=== PATIENT | male | born 1935 ===

== ENCOUNTER 2018-12-01 21:32 | Observation (INO) | payer MEDICARE ==
[2018-12-01 22:31] LABS: VENOUS BLOOD GAS PCO2 81 mmHg (40-60); VENOUS BLOOD GAS PO2 59 mm/Hg (30-55); VENOUS BLOOD PH 7.33 (7.32-7.43)
[2018-12-01 22:38] LABS: BASO % 1.1 % (0.0-2.0); EOS # 0.3 K/uL (0.0-0.7); EOS % 5.5 % (0.0-4.0); HEMOGLOBIN 14.8 g/dL (12.0-18.0); LYMPH % 22.8 % (20.0-40.0); MEAN CELL VOLUME 87.1 fl (80.0-94.0); MEAN CORPUSCULAR HEMOGLOBIN 27.1 pg (27.0-31.0); MEAN CORPUSCULAR HGB CONC 31.1 g/dL (33.0-37.0); MEAN PLATELET VOLUME 8.8 fl (7.2-11.7); MONO # 0.5 K/uL (0.0-0.8); MONO % 10.5 % (0.0-10.0); NEUT # 2.8 K/uL (1.8-7.0); NEUT % 60.1 % (50.0-75.0); NRBC % 0.1 % (0.0-0.0); RBC 5.44 Mil/uL (4.40-5.90); WHITE BLOOD COUNT 4.6 K/uL (4.8-10.8)
[2018-12-01 22:43] LABS: INR 1.1; PROTHROMBIN TIME 12.7 Seconds (9.8-13.1)
[2018-12-01 22:45] LABS: PARTIAL THROMBOPLASTIN TIME 36.3 Seconds (25.6-37.1)
--- NOTE | 2018-12-01 22:45 | ED PDOC ---
HPI: General Adult Time Seen by Provider: 12/01/18 21:59 Chief Complaint (Nursing): Abnormal Labs Chief Complaint (Provider): Abnormal Labs History Per: Patient History/Exam Limitations: no limitations Current Symptoms Are (Timing): Still Present Recently: Hospitalized Additional History Per: Detention Additional Complaint(s): 83 year old male with a history of HTN, DM, high cholesterol and renal failure presents to the ED due to elevated levels of potassium. Patient recently had a prolonged hospital stay due to renal insufficiency, hyperkalemia and urinary retention and is currently a [facility] resident while he rehabilitates. His potassium level was 6.6. Offers no serious complaints. He is just reporting feeling tired with some shortness of breath. Denies chest pain and focal weakness. PMD: Dr. Richardson custodial: Dr. Zuñiga Past Medical History Reviewed: Historical Data, Nursing Documentation, Vital Signs Vital Signs: Last Vital Signs Temp 98.3 F 12/01/18 21:37 Pulse 115 H 12/01/18 21:37 Resp 16 12/01/18 21:37 BP 158/102 H 12/01/18 21:37 Pulse Ox 96 12/01/18 21:37 - Medical History PMH: Diabetes, HTN, Hypercholesterolemia, End Stage Renal Disease - Family History Family History: States: Unknown Family Hx - Home Medications Home Medications: Ambulatory Orders Medication Instructions Recorded Acetaminophen [Tylenol 325mg tab] 2 tab PO Q4 PRN 12/02/18 Albuterol/Ipratropium [Duoneb 3 3 ml IH Q6 PRN 12/02/18 mg/0.5 mg (3 ml) UD] Arformoterol [Brovana] 15 mcg IH BID 12/02/18 Aspirin [Adult Low Dose Aspirin EC] 1 tab PO DAILY 12/02/18 Atorvastatin Calcium 20 mg PO HS 12/02/18 Budesonide [Pulmicort] 2 ml INH BID 12/02/18 Famotidine [Pepcid] 1 tab PO HS 12/02/18 Fexofenadine HCl [Aller-Fex] 180 mg PO DAILY 12/02/18 Furosemide [Lasix] 20 mg PO DAILY 12/02/18 Insulin Lispro [Admelog] See Protocol SQ ACHS 12/02/18 Mag Hydrox/Aluminum Hyd/Simeth 30 ml PO DAILY PRN 12/02/18 [Mag-Al Plus Xs Suspension] Magnesium Hydroxide [Milk Of 30 ml PO DAILY PRN 12/02/18 Magnesia] Metoprolol Tartrate [Lopressor] 50 mg PO Q12 12/02/18 Tamsulosin [Flomax] 0.4 mg PO DAILY 12/02/18 traMADol [Ultram] 1 tab PO Q6 PRN 12/02/18 - Allergies Allergies/Adverse Reactions: Allergies Allergy/AdvReac Type Severity Reaction Status Date / Time No Known Allergies Allergy Verified 12/01/18 21:37 Review of Systems ROS Statement: Except As Marked, All Systems Reviewed And Found Negative Constitutional: Positive for: Weakness, Other Cardiovascular: Negative for: Chest Pain Respiratory: Positive for: Shortness of Breath Neurological: Negative for: Weakness Physical Exam - Reviewed Nursing Documentation Reviewed: Yes Vital Signs Reviewed: Yes - Physical Exam Appears: Positive for: Well, No Acute Distress Head Exam: Positive for: ATRAUMATIC Skin: Positive for: Normal Color, Warm, Dry. Negative for: Rash Eye Exam: Positive for: EOMI, Normal appearance, PERRL Neck: Positive for: Normal, Painless ROM Cardiovascular/Chest: Positive for: Regular Rate, Rhythm. Negative for: Murmur Respiratory: Positive for: Normal Breath Sounds (lung sounds clear to aus cultation). Negative for: Rales, Rhonchi, Wheezing Gastrointestinal/Abdominal: Positive for: Normal Exam, Soft. Negative for: Tenderness, Mass, Guarding, Rebound Back: Positive for: Normal Inspection. Negative for: Muscle Spasm Extremity: Positive for: Normal ROM (x 4). Negative for: Deformity Lymphatic: Negative for: Adenopathy Neurological/Psych: Positive for: Awake, Alert. Negative for: Motor/Sensory Deficits - Laboratory Results Result Diagrams: 12/02/18 06:30 12/02/18 06:30 Lab Results: pO2 59 mm/Hg (30-55) H 12/01/18 22:20 VBG pH 7.33 (7.32-7.43) 12/01/18 22:20 VBG pCO2 81 mmHg (40-60) H* 12/01/18 22:20 VBG HCO3 34.8 mmol/L 12/01/18 22:20 VBG Total CO2 45.2 mmol/L (22-28) H 12/01/18 22:20 VBG O2 Sat (Calc) 94.4 % (40-65) H 12/01/18 22:20 VBG Base Excess 13.0 mmol/L (0.0-2.0) H 12/01/18 22:20 VBG Potassium 4.6 mmol/L (3.6-5.2) 12/01/18 22:20 Sodium 137.0 mmol/L (132-148) 12/01/18 22:20 Chloride 98.0 mmol/L (98-107) 12/01/18 22:20 Glucose 135 mg/dL (75-110) H 12/01/18 22:20 Lactate 1.1 mmol/L (0.7-2.1) 12/01/18 22:20 FiO2 21.0 % 12/01/18 22:20 Crit Value Called To Sonia carty 12/01/18:20 Crit Value Called By 23 12/01/18:20 Crit Value Read Back Y 12/01/18 22:20 Blood Gas Notified Time 222712/01/18 22:20 - ECG O2 Sat by Pulse Oximetry: 96 (RA) Pulse Ox Interpretation: Normal Medical Decision Making Medical Decision Makin:00 Impression: hyperkalemia Initial Plan: --Blood type and screen --VBG --EKG --CMP --CBC --Troponin --Magnesium --Phosphate --PTT --PT --UA --Urine cx --CXR Labs do not demonstrate hyperkalemia. However demonstrates worsening renal function. WILMER Zuñiga. Pt to be hospitalized for further management. Scribe Attestation: Documented by Jewell Dai, acting as a scribe for Leandra Andersen MD. Provider Scribe Attestation: All medical record entries made by the Scribe were at my direction and personally dictated by me. I have reviewed the chart and agree that the record accurately reflects my personal performance of the history, physical exam, medic al decision making, and the department course for this patient. I have also personally directed, reviewed, and agree with the discharge instructions and disposition. Disposition - Clinical Impression Clinical Impression: Acute on chronic renal insufficiency - Disposition Disposition Time: 23:45 Condition: FAIR - Pt Status Changed To: Hospital Disposition Of: Observation - POA Present On Arrival: None
[2018-12-01 23:22] LABS: ALB/GLOB RATIO 0.9 (1.0-2.1); ALBUMIN 3.6 g/dL (3.5-5.0); ALT/SGPT 46 U/L (21-72); AST/SGOT 44 U/L (17-59); BLOOD UREA NITROGEN 32 mg/dl (9-20); CALCIUM 9.1 mg/dL (8.4-10.2); GFR NON-AFRICAN AMERICAN 36
[2018-12-02] MEDS ORDERED: Sodium Chloride 0.9% 1,000 ML IV STA (00:08)
[2018-12-02 04:20] LABS: URINE BILIRUBIN NEGATIVE (NEGATIVE); URINE BLOOD LARGE (NEGATIVE); URINE CLARITY CLOUDY (Clear); URINE COLOR AMBER (YELLOW); URINE GLUCOSE (UA) NEG (NEGATIVE); URINE HYALINE CAST 0-2 /hpf (0-2); URINE LEUKOCYTE ESTERASE SMALL Leu/uL (Negative); URINE PROTEIN 100 mg/dL (NEGATIVE)
[2018-12-02] MEDS ORDERED: Magnesium Hydroxide Susp 30 ml UD PO PRN (06:17)
[2018-12-02] MEDS ORDERED: Alum-Mag Hydrox-Simethicone Susp (30 mL) PO PRN (06:17)
[2018-12-02 06:50] LABS: HEMOGLOBIN 14.6 g/dL (12.0-18.0); MEAN CELL VOLUME 88.1 fl (80.0-94.0); MEAN CORPUSCULAR HEMOGLOBIN 27.1 pg (27.0-31.0); MEAN CORPUSCULAR HGB CONC 30.7 g/dL (33.0-37.0); RBC 5.4 Mil/uL (4.40-5.90); RED CELL DISTRIBUTION WIDTH 19.2 % (11.5-14.5); WHITE BLOOD COUNT 4.5 K/uL (4.8-10.8)
[2018-12-02 06:56] LABS: INR 1.1; PROTHROMBIN TIME 12.3 Seconds (9.8-13.1)
[2018-12-02 06:58] LABS: PARTIAL THROMBOPLASTIN TIME 37.6 Seconds (25.6-37.1)
[2018-12-02 07:00] LABS: ALBUMIN 3.6 g/dL (3.5-5.0)
[2018-12-02] MEDS: Budesonide 0.25 mg/2 ml Inhal Susp UD INH SCH ×2 (07:14→19:20)
[2018-12-02] MEDS: Albuterol-Ipratrop 3 mg / 0.5 (3 ml) UD IH PRN ×2 (07:14→19:15)
[2018-12-02] MEDS ORDERED: Insulin Lispro (humaLOG) 100 Units/ml Inj SC SCH (07:30)
[2018-12-02 08:22] VITALS: PULSE 85
[2018-12-02] MEDS: Insulin Lispro (humaLOG) 100 Units/ml Inj SC SCH ×3 (08:28→17:18)
[2018-12-02] MEDS ORDERED: Pneumococcal 23-Valent Vaccine IM ONE (09:00)
[2018-12-02] MEDS ORDERED: Patient's Own Med (Arformoterol [Brovana] 15 MCG) IH SCH (09:00)
[2018-12-02] MEDS ORDERED: BUDESONIDE INH SCH (09:00)
--- NOTE | 2018-12-02 09:02 | CARD ---
APPROVED REPORT Date of service: 12/01/2018 EKG Measurement Heart [id number] <Conclusion> Atrial fibrillation with rapid ventricular response Abnormal ECG
--- NOTE | 2018-12-02 10:45 | RAD ---
Date of service: 12/01/2018 HISTORY: Hyperkalemia COMPARISON: 08/10/2013 FINDINGS: LUNGS: No active pulmonary disease. PLEURA: No significant pleural effusion identified, no pneumothorax apparent. CARDIOVASCULAR: No atherosclerotic calcification present Cardiomegaly. No evidence of acute, significant cardiovascular disease. OSSEOUS STRUCTURES: No significant abnormalities. VISUALIZED UPPER ABDOMEN: Normal. OTHER FINDINGS: None. IMPRESSION: No active pulmonary disease. No significant interval change compared to the prior examination(s).
[2018-12-02 16:16] VITALS: BP 117/67; RESP 20; TEMP 97.8
--- NOTE | 2018-12-04 00:52 | CP.PCM.HP ---
History of Present Illness - History of Present Illness History of Present Illness: CC: Sent from [facility] for Electrolyte Abnormalities History of Present Illness: An 83 year old male with a history of Essential HTN, DM II, High Cholesterol and Renal Failure presents to the ED due to elevated levels of potassium. Patient recently had a prolonged hospital stay due to renal insufficiency, Hyperkalemia and urinary retention and is currently a snf resident at [facility]. His potassium level was 6.6. Offers no serious complaints. He is just reporting feeling tired with some shortness of breath. Denies chest pain and focal weakness. Present on Admission - Present on Admission Any Indicators Present on Admission: Yes Urinary Catheter: Yes Review of Systems - Review of Systems All systems: reviewed and no additional remarkable complaints except Review of Systems: as per HPI Past Patient History - Past Medical History & Family History Past Medical History?: Yes Past Family History: Reviewed and not pertinent - Past Social History Smoking Status: Never Smoked Alcohol: None Drugs: Denies - CARDIAC Hx Hypercholesterolemia: Yes Hx Hypertension: Yes - HEENT Hx Cataracts: Yes - RENAL Hx Renal Failure: Yes (ESRD) - ENDOCRINE/METABOLIC Hx Diabetes Mellitus Type 2: Yes - MUSCULOSKELETAL/RHEUMATOLOGICAL Hx Falls: No Hx Unsteady Gait: Yes - GENITOURINARY/GYNECOLOGICAL Hx Hematuria: Yes Hx Prostate Cancer: Yes Other/Comment: Watson catheter insertion and hematuria. bladder disorder - PSYCHIATRIC Hx Substance Use: No - SURGICAL HISTORY Hx Surgeries: Yes Hx Arthroscopy: Yes (left knee) Hx Cataract Extraction: Yes (b/l eyes) Hx Cholecystectomy: Yes Hx Coronary Stent: Yes - ANESTHESIA Hx Anesthesia: Yes Hx Anesthesia Reactions: No Hx Malignant Hyperthermia: No Meds Allergies/Adverse Reactions: Allergies Allergy/AdvReac Type Severity Reaction Status Date / Time No Known Allergies Allergy Verified 12/01/18 21:37 Physical Exam - Constitutional Appears: No Acute Distress, Chronically Ill - Head Exam Head Exam: ATRAUMATIC, NORMAL INSPECTION, NORMOCEPHALIC - Eye Exam Eye Exam: EOMI, Normal appearance, PERRL Pupil Exam: NORMAL ACCOMODATION, PERRL - ENT Exam ENT Exam: Mucous Membranes Dry, Normal Exam - Neck Exam Neck exam: Positive for: Full Rom, Normal Inspection - Respiratory Exam Respiratory Exam: Clear to Auscultation Bilateral, NORMAL BREATHING PATTERN - Cardiovascular Exam Cardiovascular Exam: REGULAR RHYTHM, +S1, +S2 - GI/Abdominal Exam GI & Abdominal Exam: Normal Bowel Sounds, Soft. absent: Tenderness - Extremities Exam Extremities exam: Positive for: normal capillary refill, normal inspection - Back Exam Back exam: NORMAL INSPECTION - Neurological Exam Neurological exam: Alert, CN II-XII Intact, Normal Gait, Oriented x3, Reflexes Normal - Psychiatric Exam Psychiatric exam: Normal Affect, Normal Mood - Skin Skin Exam: Dry, Intact, Normal Color, Warm Results - Vital Signs Recent Vital Signs: Last Vital Signs Temp 97.8 F 12/02/18 16:15 Pulse 85 12/02/18 16:15 Resp 20 12/02/18 16:15 BP 117/67 12/02/18 16:15 Pulse Ox 95 12/02/18 16:15 - Labs Result Diagrams: 12/02/18 06:30 12/02/18 06:30 - Imaging and Cardiology Chest x-ray Status: Report reviewed by me Additional comment: Date of service: 12/01/2018 HISTORY: Hyperkalemia COMPARISON: 08/10/2013 FINDINGS: LUNGS: No active pulmonary disease. PLEURA: No significant pleural effusion identified, no pneumothorax apparent. CARDIOVASCULAR: No atherosclerotic calcification present Cardiomegaly. No evidence of acute, significant cardiovascular disease. OSSEOUS STRUCTURES: No significant abnormalities. VISUALIZED UPPER ABDOMEN: Normal. OTHER FINDINGS: None. IMPRESSION: No active pulmonary disease. No significant interval change compared to the prior examination(s). Assessment & Plan (1) Acute on chronic renal insufficiency Status: Acute Priority: Medium (2) Dehydration Status: Acute Priority: Low - Assessment and Plan (Free Text) Plan: Keep Under Observation IVF Repeat BMP in Am PT/OT Reevaluation
--- NOTE | 2018-12-04 00:55 | CP.PCM.DIS ---
Provider - Provider Date of Admission: 12/02/18 00:40 Attending physician: Lina Zuñiga MD Consults: 12/02/18 06:49 Nursing Referral for Wound Care Routine Comment: Physician Instructions: Reason For Exam: clyde scale protocol Social Work Referral Routine Comment: from intermediate Physician Instructions: Reason For Exam: discharge planning Time Spent in preparation of Discharge (in minutes): 25 Diagnosis - Discharge Diagnosis (1) Acute on chronic renal insufficiency Status: Acute (2) Dehydration Status: Acute (3) Hematuria Status: Acute Hospital Course - Lab Results Lab Results: Micro Results 12/02/18 04:00 Urine,Catheterized Urine Culture - Final No Growth (<1,000 CFU/ML) Most Recent Lab Values WBC 4.5 K/uL (4.8-10.8) L 12/02/18 06:30 RBC 5.40 Mil/uL (4.40-5.90) 12/02/18 06:30 Hgb 14.6 g/dL (12.0-18.0) 12/02/18 06:30 Hct 47.6 % (35.0-51.0) 12/02/18 06:30 MCV 88.1 fl (80.0-94.0) 12/02/18 06:30 MCH 27.1 pg (27.0-31.0) 12/02/18 06:30 MCHC 30.7 g/dL (33.0-37.0) L 12/02/18 06:30 RDW 19.2 % (11.5-14.5) H 12/02/18 06:30 Plt Count 163 K/uL (130-400) 12/02/18 06:30 MPV 8.8 fl (7.2-11.7) 12/01/18 22:33 Neut % (Auto) 60.1 % (50.0-75.0) 12/01/18 22:33 Lymph % (Auto) 22.8 % (20.0-40.0) 12/01/18 22:33 [place] % (Auto) 10.5 % (0.0-10.0) H 12/01/18 22:33 Eos % (Auto) 5.5 % (0.0-4.0) H 12/01/18 22:33 Baso % (Auto) 1.1 % (0.0-2.0) 12/01/18: Neut # (Auto) 2.8 K/uL (1.8-7.0) 12/01/18: Lymph # (Auto) 1.0 K/uL (1.0-4.3) 12/01/18: [place] # (Auto) 0.5 K/uL (0.0-0.8) 12/01/18: Eos # (Auto) 0.3 K/uL (0.0-0.7) 12/01/18: Baso # (Auto) 0.0 K/uL (0.0-0.2) 12/01/18: PT 12.3 Seconds (9.8-13.1) 12/02/18 06:30 INR 1.1 12/02/18 06:30 APTT 37.6 Seconds (25.6-37.1) H 12/02/18 06:30 pO2 59 mm/Hg (30-55) H 12/01/18 22:20 VBG pH 7.33 (7.32-7.43) 12/01/18 22:20 VBG pCO2 81 mmHg (40-60) H* 12/01/18 22:20 VBG HCO3 34.8 mmol/L 12/01/18 22:20 VBG Total CO2 45.2 mmol/L (22-28) H 12/01/18 22:20 VBG O2 Sat (Calc) 94.4 % (40-65) H 12/01/18 22:20 VBG Base Excess 13.0 mmol/L (0.0-2.0) H 12/01/18 22:20 VBG Potassium 4.6 mmol/L (3.6-5.2) 12/01/18 22:20 Sodium 137.0 mmol/L (132-148) 12/01/18 22:20 Chloride 98.0 mmol/L (98-107) 12/01/18 22:20 Glucose 135 mg/dL (75-110) H 12/01/18 22:20 Lactate 1.1 mmol/L (0.7-2.1) 12/01/18 22:20 FiO2 21.0 % 12/01/18 22:20 Crit Value Called To Sonia carty 12/01/18 22:20 Crit Value Called By 23 12/01/18 22:20 Crit Value Read Back Y 12/01/18 22:20 Blood Gas Notified Time 222712/01/18 22:20 Sodium 142 mmol/l (132-148) 12/02/18 06:30 Potassium 4.6 MMOL/L (3.6-5.0) 12/02/18 06:30 Chloride 99 mmol/L (98-107) 12/02/18 06:30 Carbon Dioxide 37 mmol/L (22-30) H 12/02/18 06:30 Anion Gap 11 (10-20) 12/02/18 06:30 BUN 30 mg/dl (9-20) H 12/02/18 06:30 Creatinine 1.5 mg/dl (0.8-1.5) 12/02/18 06:30 Est GFR ( Amer) 54 12/02/18 06:30 Est GFR (Non-Af Amer) 45 12/02/18 06:30 POC Glucose (mg/dL) 133 mg/dL (65-110) H 12/02/18 16:42 Random Glucose 115 mg/dL (75-110) H 12/02/18 06:30 Hemoglobin A1c 7.4 % (4.2-6.5) H 12/02/18 06:30 Calcium 9.0 mg/dL (8.4-10.2) 12/02/18 06:30 Phosphorus 3.3 mg/dl (2.5-4.5) 12/01/18 22:33 Magnesium 2.1 MG/DL (1.6-2.3) 12/01/18 22:33 Total Bilirubin 0.5 mg/dl (0.2-1.3) 12/02/18 06:30 AST 39 U/L (17-59) 12/02/18 06:30 ALT 34 U/L (21-72) 12/02/18 06:30 Alkaline Phosphatase 132 U/L (38-126) H 12/02/18 06:30 Troponin I < 0.0120 ng/mL (0.00-0.120) 12/01/18 22:33 Total Protein 7.3 G/DL (6.3-8.2) 12/02/18 06:30 Albumin 3.6 g/dL (3.5-5.0) 12/02/18 06:30 Globulin 3.7 gm/dL (2.2-3.9) 12/02/18 06:30 Albumin/Globulin Ratio 1.0 (1.0-2.1) 12/02/18 06:30 Venous Blood Potassium 4.6 mmol/L (3.6-5.2) 12/01/18 22:20 Urine Color Lyn (YELLOW) 12/02/18 04:10 Urine Clarity Cloudy (Clear) 12/02/18 04:10 Urine pH 6.0 (5.0-8.0) 12/02/18 04:10 Ur Specific [place] 1.018 (1.003-1.030) 12/02/18 04:10 Urine Protein 100 mg/dL (NEGATIVE) 12/02/18 04:10 Urine Glucose (UA) Neg mg/dL (NEGATIVE) 12/02/18 04:10 Urine Ketones Negative mg/dL (NEGATIVE) 12/02/18 04:10 Urine Blood Large (NEGATIVE) 12/02/18 04:10 Urine Nitrate Negative (NEGATIVE) 12/02/18 04:10 Urine Bilirubin Negative (NEGATIVE) 12/02/18 04:10 Urine Urobilinogen 2.0 mg/dL (0.2-1.0) 12/02/18 04:10 Ur Leukocyte Esterase Small Fabiola/uL (Negative) 12/02/18 04:10 Urine RBC (Auto) 2353 /hpf (0-3) H 12/02/18 04:10 Urine Microscopic WBC 43 /hpf (0-5) H 12/02/18 04:10 Hyaline Casts 0-2 /hpf (0-2) 12/02/18 04:10 Blood Type O POSITIVE 12/01/18 22:33 Antibody Screen Negative 12/01/18 22:33 BBK History Checked Patient has bt 12/01/18 22:33 Discharge Exam - Head Exam Head Exam: ATRAUMATIC Discharge Plan - Follow Up Plan Condition: FAIR Disposition: TRANSF TO SNF Instructions: Chronic Kidney Disease Additional Instructions: SORIANO CATH IN PLACE. [place]. LOWER EXT. AND SCROTUM SWOLLEN.
[2018-12-05 17:52] VITALS: O2SAT 96
== END 2018-12-02 20:45 ==
LOC: H.ER 21:32 → H.ERHOLD 12-02 00:40 → H.MEDSURG1 12-02 05:04
PROVIDERS: ADMIT Internal Medicine; ATTEND Internal Medicine
DX: E87.5 Hyperkalemia (principal); I12.0 Hypertensive chronic kidney disease with stage 5 chronic kidney disease or end stage renal disease; N18.6 End stage renal disease; E78.00 Pure hypercholesterolemia, unspecified; E11.22 Type 2 diabetes mellitus with diabetic chronic kidney disease
CPT/HCPCS: 36415; 71045; 80053; 81003; 82803; 82948; 83036; 83735; 84100; 84484; 85025; 85027; 85610; 85730; 86850; 86900; 87086; 90471; 90732; 93005; 94150; 94640; 99284; G0378; J7030